=== PATIENT | female | born 1980 | race Caucasian/White ===

== ENCOUNTER 2017-01-09 23:20 | Inpatient (IN) | payer OTHER ==
[~2017-01-09] VITALS: Ht 165.1 cm; Wt 80.8 kg
[~2017-01-09 23:20] MED LIST: ATARAX25 MG PO; CIPRO250 MG PO; FLEXERIL10 MG PO; GABAPENTIN100 MG PO; HYDROCODONE BIT1 T11 PO; MOTRIN800 MG PO; MYCOLOG CREAM 115 GM PO; MYCOLOG CREAM 115 GM T; NKHM; PAXIL10 MG PO; PREDNICOT20 MG PO; PRILOSEC10 MG PO; PRILOSEC20 MG PO; TYLENOL W/CODEI1 TA2 PO; VICODIN 5/500 505 MG PO; VICODIN 500 MG-1 TAB PO; Vicodin 5/500 505 MG PO; ZOFRAN ODT4 MG SL
[2017-01-09 23:25] VITALS: BP 149/75
[2017-01-09] MEDS ORDERED: TIZANIDINE HCL4 MG PO (23:28)
[2017-01-09] MEDS ORDERED: LATU40TA PO (23:29)
[2017-01-09] MEDS ORDERED: REMERON15 M2 PO (23:29)
[2017-01-09 23:49] LABS: HEMATOCRIT 40.2 % (37.0-47.0); HEMOGLOBIN 13.8 g/dl (12.0-16.0); MEAN CORPUSCULAR HGB 31.6 pg (27.0-31.0); MEAN CORPUSCULAR HGB CONC 34.3 g/dl (33.0-37.0); MEAN PLATELET VOLUME 10.5 fl (9.6-12.3); PLATELET COUNT AUTOMATED 329 10*3/uL (130-400); RED BLOOD COUNT 4.37 10*6/uL (4.10-5.10); RED CELL DISTRI WIDTH 12.7 % (0-14.5); WHITE BLOOD COUNT 33.3 10*3/uL (4.8-10.8)
[2017-01-10] LABS: BUN 12 mg/dl (7-24); CARBON DIOXIDE 27 mmol/L (21-32); CHLORIDE 104 mmol/L (98-107); EST GLOM FILT AFRICAN AMERICAN > 60 ml/min; GLUCOSE 108 mg/dL (65-99); POTASSIUM 3.5 mmol/L (3.5-5.1); SODIUM 138 mmol/L (136-145)
[2017-01-10 00:04] LABS: CPK 98 U/L (26-192)
[2017-01-10 00:10] VITALS: BP 124/69
[2017-01-10 00:11] LABS: EOSINOPHIL # 0.7 10*3/uL (0-0.4); EOSINOPHILS 2 % (1-4); LYMPHOCYTE # 2.3 10*3/uL (1.3-4.4); NEUTROPHIL # 26.3 10*3/uL (2.3-7.9); NEUTROPHILS 79 % (47-73); PLATELET SUFFICIENCY NORMAL (NORMAL); TOTAL CELLS COUNTED 100 #CELLS
[2017-01-10 00:12] LABS: POLYCHROMASIA SLIGHT
[2017-01-10 00:29] LABS: BILIRUBIN 1+ (NEGATIVE); BLOOD 1+ (NEGATIVE); CLARITY SL CLOUDY (CLEAR); COLOR YELLOW (YELLOW); GLUCOSE NEGATIVE (NEGATIVE); KETONE NEGATIVE (NEGATIVE); LEUKO ESTERASE NEGATIVE (NEGATIVE); NITRITE NEGATIVE (NEGATIVE); PH 5.5 (5.0-9.0); PROTEIN TRACE (NEGATIVE); SPECIFIC GRAVITY 1.025 (1.005-1.030)
[2017-01-10 00:38] LABS: BACTERIA 2+; CALCIUM OXALATE CRYSTALS 2+; URINE REFLEX COMMENT YES (NO)
[2017-01-10 02:30] VITALS: BP 115/70
[2017-01-10 08:00] VITALS: BP 101/56
[2017-01-10 08:50] LABS: HEMOGLOBIN A1c 5.2 % (4.8-5.6)
[2017-01-10 09:04] LABS: ALBUMIN 2.8 gm/dl (3.1-4.5); ALKALINE PHOSPHATASE 48 U/L (45-117); BILIRUBIN, TOTAL 0.5 mg/dl (0.2-1.0); BUN 8 mg/dl (7-24); CARBON DIOXIDE 24 mmol/L (21-32); CHLORIDE 113 mmol/L (98-107); CHOLESTEROL 165 mg/dL (<200); EST GLOM FILT AFRICAN AMERICAN > 60 ml/min; FREE T4 0.99 ng/dl (0.76-1.46); GLUCOSE 91 mg/dL (65-99); HDL CHOLESTEROL 40 mg/dl (40-60); LDL CHOLESTEROL 112 mg/dL (9-159); POTASSIUM 3.7 mmol/L (3.5-5.1); SGOT/AST 12 IU/L (3-35); SGPT/ALT 18 U/L (12-78); SODIUM 143 mmol/L (136-145); TOTAL PROTEIN 5.8 gm/dL (6.4-8.2); TRIGLYCERIDES 67 mg/dl (<150); VLDL CHOLESTEROL 13 mg/dL (6-40)
[2017-01-10 09:08] LABS: BASO # 0.1 10*3/uL (0.0-0.1); BASO % 0.6 % (0.0-1.0); EOS # 0.5 10*3/uL (0.0-0.4); EOS % 3.2 % (1.0-4.0); HEMATOCRIT 35.5 % (37.0-47.0); HEMOGLOBIN 11.8 g/dl (12.0-16.0); IG # 0.1 10*3/uL (0.0-0.1); LYMPH # 3.7 10*3/uL (1.3-4.4); MEAN CELL VOLUME 92.9 fl (81.0-99.0); MEAN CORPUSCULAR HGB 30.9 pg (27.0-31.0); MEAN CORPUSCULAR HGB CONC 33.2 g/dl (33.0-37.0); MEAN PLATELET VOLUME 10.9 fl (9.6-12.3); MONO # 1.1 10*3/uL (0.1-1.0); MONO % 6.7 % (3.0-9.0); NEUT # 10.7 10*3/uL (2.3-7.9); NEUT % 66.2 % (47.0-73.0); PLATELET COUNT AUTOMATED 274 10*3/uL (130-400); RED BLOOD COUNT 3.82 10*6/uL (4.10-5.10); RED CELL DISTRI WIDTH 12.9 % (0-14.5); WHITE BLOOD COUNT 16.1 10*3/uL (4.8-10.8)
[2017-01-10 09:09] LABS: THYROID STIM HORMONE (HS) 3.26 uIU/ml (0.358-4.75)
[2017-01-10 09:14] LABS: PROTHROMBIN TIME 10.6 SECONDS (9.0-12.4)
[2017-01-10 09:25] LABS: FOLIC ACID 15.96 ng/mL (>5.38)
[2017-01-10 12:00] VITALS: BP 110/68
[2017-01-10] MEDS ORDERED: MACROBID100 M1 PO (12:35)
== END 2017-01-10 13:10 | disposition home or self-care (01) | DRG 871 ==
LOC: ED 23:20 → 5E 01-10 01:56 → EDHOLD 01-10 01:56 → 5E 01-10 02:17
PROVIDERS: Emergency Medicine; Internal Medicine Hospice and Palliative Medicine
DX: A41.9 Sepsis, unspecified organism (principal); N17.0 Acute kidney failure with tubular necrosis; N39.0 Urinary tract infection, site not specified; F07.81 Postconcussional syndrome; F31.9 Bipolar disorder, unspecified; E86.0 Dehydration; F41.1 Generalized anxiety disorder; K21.9 Gastro-esophageal reflux disease without esophagitis; R65.20 Severe sepsis without septic shock; R73.9 Hyperglycemia, unspecified; R91.1 Solitary pulmonary nodule; F17.210 Nicotine dependence, cigarettes, uncomplicated; Z79.899 Other long term (current) drug therapy; Z98.51 Tubal ligation status; Z72.89 Other problems related to lifestyle; Z80.8 Family history of malignant neoplasm of other organs or systems; Z71.6 Tobacco abuse counseling

== ENCOUNTER → 2017-02-02 | Outpatient (CLI) | payer OTHER ==
[~2017-02-02] MED LIST changes: +LATU40TA PO; +MACROBID100 M1 PO; +REMERON15 M2 PO; +TIZANIDINE HCL4 MG PO
== END | disposition home or self-care (01) ==
LOC: CT 13:47
DX: R91.1 Solitary pulmonary nodule (principal)

== ENCOUNTER → 2017-02-16 | Outpatient (CLI) | payer OTHER ==
[2017-02-17 08:11] LABS: RHEUMATOID ARTHRITIS FACTOR <10.0 IU/mL (0.0-13.9)
[2017-02-17 10:09] LABS: IMMUNOGLOBULIN IgE 002170 34 IU/mL (0-100)
[2017-02-17 12:06] LABS: ANTISCLERODERMA-70 AB 018705 <0.2 AI (0.0-0.9)
[2017-02-17 16:09] LABS: ANGIOTENSIN-CONVERTING ENZYME 57 U/L (14-82); ATYPICAL PANCA <1:20 titer (Neg:<1:20); CYTOPLASMIC (C-ANCA) <1:20 titer (Neg:<1:20); PERINUCLEAR (P-ANCA) <1:20 titer (Neg:<1:20)
[2017-02-18 00:04] LABS: IGG SUBCLASS 1 552 mg/dL (248-810); IGG SUBCLASS 2 380 mg/dL (130-555); IGG SUBCLASS 3 44 mg/dL (15-102); IGG SUBCLASS 4 27 mg/dL (2-96)
== END | disposition home or self-care (01) ==
LOC: LAB 15:12
PROVIDERS: Internal Medicine Critical Care Medicine
DX: R91.1 Solitary pulmonary nodule (principal)

== ENCOUNTER → 2017-08-17 | Outpatient (CLI) | payer OTHER | END | disposition home or self-care (01) | LOC: CT 09:35 | DX: R91.8 Other nonspecific abnormal finding of lung field (principal) ==

== ENCOUNTER → 2017-08-31 | Day surgery (SDC) | payer OTHER ==
[~2017-08-31] VITALS: Ht 165.1 cm; Wt 83.2 kg
[~2017-08-31] MED LIST changes: +VIIBRYD40 PO; +VISTARIL25 MG PO; +XANAX0.5 MG PO
--- NOTE | ~2017-08-31 | PROC NOTE ---
[place], [place] PROCEDURE NOTE NAME: JED LARES UNIT #: [id number] ROOM: DOCTOR: ANDRÉS FAUSTIN MD,YAA BIRTHDATE: [birth year] DOS: 08/31/2017 BRONCHOSCOPY NOTE PREOPERATIVE DIAGNOSIS: The patient with atelectasis in the right lower lobe with scattered area of scarring in the lung with history of pulmonary nodules. POSTOPERATIVE DIAGNOSIS: The patient with atelectasis in the right lower lobe with scattered area of scarring in the lung with history of pulmonary nodules. PROCEDURE DESCRIPTION: Informed consent obtained from the patient. She was brought to the OR and placed in supine position. Conscious sedation administered by Anesthesia Department. After achieving proper sedation in the supine position, the bronchoscopy was advanced to the airway into laryngeal area. Epiglottis and vocal cords were seen. Bronchoscope was advanced to the vocal cord and tracheal lumen. Tracheal lumen was identified and noted with scattered small amount of secretions that was suctioned out. The right upper, right middle, left upper and lingular lower lobe bronchi were all examined. All the bronchi noted patent with minimal secretions. Bronchial washing was taken from the endobronchial tree for this patient including in the right lower lobe. Procedure well tolerated by the patient without any difficulty. Postoperative finding will be discussed with the patient and the family members of the patient later on. YAA BOWEN MD CM:PROCNOTE:PROCEDURE NOTE [id number] YAA FAUSTIN MD
[2017-08-31 08:00] VITALS: BP 103/60
[2017-08-31 09:00] VITALS: BP 107/61
[2017-08-31 09:14] VITALS: BP 102/66
[2017-08-31 09:26] VITALS: BP 110/70
[2017-09-01 15:04] LABS: ACID FAST SPEC PROCESSING Concentration (.)
== END ==
LOC: SDC 08-28 14:45
PROVIDERS: Internal Medicine Critical Care Medicine
DX: J98.11 Atelectasis (principal); J40 Bronchitis, not specified as acute or chronic; F41.9 Anxiety disorder, unspecified; F31.9 Bipolar disorder, unspecified; Z87.891 Personal history of nicotine dependence; Z98.51 Tubal ligation status; Z79.899 Other long term (current) drug therapy; K21.9 Gastro-esophageal reflux disease without esophagitis

== ENCOUNTER → 2017-09-16 | Outpatient (CLI) | payer OTHER | END | disposition home or self-care (01) | LOC: MAMMO 09-09 09:00 | DX: N63.20 Unspecified lump in the left breast, unspecified quadrant (principal); N63.21 Unspecified lump in the left breast, upper outer quadrant ==

== ENCOUNTER 2018-04-03 19:46 | Emergency (ER) | payer OTHER ==
[~2018-04-03] VITALS: Wt 88.0 kg
[2018-04-03] MEDS ORDERED: LINZESS145 MC1 PO (19:53)
[2018-04-03] MEDS ORDERED: BUSPAR5 MG PO (19:53)
[2018-04-03] MEDS ORDERED: LATU20TA PO (19:53)
== END 2018-04-03 21:04 | disposition home or self-care (01) ==
LOC: ED 19:46
DX: S90.32XA Contusion of left foot, initial encounter (principal); F17.200 Nicotine dependence, unspecified, uncomplicated; Z79.899 Other long term (current) drug therapy; W20.8XXA Other cause of strike by thrown, projected or falling object, initial encounter; Y93.89 Activity, other specified; Y92.89 Other specified places as the place of occurrence of the external cause; Y99.8 Other external cause status

== ENCOUNTER 2018-07-05 00:07 | Emergency (ER) | payer OTHER ==
[~2018-07-05] VITALS: Ht 165.1 cm; Wt 92.1 kg
[~2018-07-05 00:07] MED LIST changes: +BUSPAR5 MG PO; +LATU20TA PO; +LINZESS145 MC1 PO
[2018-07-05] MEDS ORDERED: CYMBALTA60 MG PO (00:13)
[2018-07-05] MEDS ORDERED: REXULTI3 MG PO (00:13)
[2018-07-05 00:39] LABS: BASO % 0.3 % (0.0-1.0); EOS # 0.2 10*3/uL (0.0-0.4); EOS % 1.4 % (1.0-4.0); HEMATOCRIT 46.5 % (37.0-47.0); HEMOGLOBIN 15.3 g/dl (12.0-16.0); LYMPH # 0.9 10*3/uL (1.3-4.4); LYMPH % 5.7 % (27.0-41.0); MEAN CELL VOLUME 93.8 fl (81.0-99.0); MEAN CORPUSCULAR HGB 30.8 pg (27.0-31.0); MEAN CORPUSCULAR HGB CONC 32.9 g/dl (33.0-37.0); MEAN PLATELET VOLUME 10.3 fl (9.6-12.3); MONO # 0.9 10*3/uL (0.1-1.0); MONO % 5.7 % (3.0-9.0); NEUT # 13.7 10*3/uL (2.3-7.9); NEUT % 86.6 % (47.0-73.0); PLATELET COUNT AUTOMATED 314 10*3/uL (130-400); RED BLOOD COUNT 4.96 10*6/uL (4.10-5.10); RED CELL DISTRI WIDTH 13.1 % (0-14.5); WHITE BLOOD COUNT 15.8 10*3/uL (4.8-10.8)
[2018-07-05 00:54] LABS: BILIRUBIN NEGATIVE (NEGATIVE); BLOOD 1+ (NEGATIVE); CLARITY SL CLOUDY (CLEAR); COLOR YELLOW (YELLOW); GLUCOSE NEGATIVE (NEGATIVE); KETONE TRACE (NEGATIVE); LEUKO ESTERASE NEGATIVE (NEGATIVE); NITRITE NEGATIVE (NEGATIVE); PH 5.5 (5.0-9.0); SPECIFIC GRAVITY 1.025 (1.005-1.030); UROBILINOGEN 0.2 E.U./dl (0.2-1.0)
[2018-07-05 00:56] LABS: ALBUMIN 3.9 gm/dl (3.1-4.5); ALKALINE PHOSPHATASE 75 U/L (45-117); BUN 10 mg/dl (7-24); CHLORIDE 103 mmol/L (98-107); CREATININE 0.98 mg/dL (0.55-1.02); LIPASE 81 U/L (73-393); SGOT/AST 22 IU/L (3-35); SGPT/ALT 35 U/L (12-78); SODIUM 137 mmol/L (136-145); TOTAL PROTEIN 7.9 gm/dL (6.4-8.2)
[2018-07-05 01:13] LABS: BACTERIA 3+; EPITHELIAL CELLS 40-45
[2018-07-05] MEDS ORDERED: ZOFRAN4 MG PO (01:43)
== END 2018-07-05 02:12 | disposition home or self-care (01) ==
LOC: ED 00:07
PROVIDERS: Physician Assistant
DX: A08.4 Viral intestinal infection, unspecified (principal); K21.9 Gastro-esophageal reflux disease without esophagitis; F17.200 Nicotine dependence, unspecified, uncomplicated; Z79.899 Other long term (current) drug therapy

== ENCOUNTER 2018-07-18 18:18 | Emergency (ER) | payer OTHER ==
[~2018-07-18] VITALS: Ht 165.1 cm; Wt 92.1 kg
[~2018-07-18 18:18] MED LIST changes: +CYMBALTA60 MG PO; +REXULTI3 MG PO; +ZOFRAN4 MG PO
== END 2018-07-18 20:30 | disposition home or self-care (01) ==
LOC: ED 18:18
DX: S92.902A Unspecified fracture of left foot, initial encounter for closed fracture (principal); F17.200 Nicotine dependence, unspecified, uncomplicated; Z79.899 Other long term (current) drug therapy; W10.9XXA Fall (on) (from) unspecified stairs and steps, initial encounter; Y93.89 Activity, other specified; Y92.89 Other specified places as the place of occurrence of the external cause; Y99.8 Other external cause status

== ENCOUNTER 2018-12-25 12:11 | Emergency (ER) | payer OTHER ==
[~2018-12-25] VITALS: Ht 165.1 cm; Wt 98.0 kg
[2018-12-25] MEDS ORDERED: Motrin,Rufen800 MG PO (14:12)
[2018-12-25] MEDS ORDERED: CYCLOBENZAPRINE5 M3 PO (14:12)
== END 2018-12-25 14:24 | disposition home or self-care (01) ==
LOC: ED 12:11
DX: S39.012A Strain of muscle, fascia and tendon of lower back, initial encounter (principal); F17.200 Nicotine dependence, unspecified, uncomplicated; Z79.899 Other long term (current) drug therapy; X50.0XXA Overexertion from strenuous movement or load, initial encounter; Y93.89 Activity, other specified; Y92.89 Other specified places as the place of occurrence of the external cause; Y99.8 Other external cause status

== ENCOUNTER → 2019-02-15 | Outpatient (CLI) | payer OTHER ==
[~2019-02-15] MED LIST changes: +CYCLOBENZAPRINE5 M3 PO; +Motrin,Rufen800 MG PO
== END | disposition home or self-care (01) ==
LOC: CT 10:34
DX: R91.8 Other nonspecific abnormal finding of lung field (principal)

== ENCOUNTER 2019-09-16 05:46 | Inpatient (IN) | payer OTHER ==
[2019-09-16] VITALS (9 sets, daily range): BP systolic 100–130; BP diastolic 58–88
[~2019-09-16] VITALS: Ht 165.1 cm; Wt 88.9 kg
[2019-09-16 06:50] LABS: BASO # 0.1 10*3/uL (0.0-0.1); BASO % 0.6 % (0.0-1.0); EOS # 0.5 10*3/uL (0.0-0.4); EOS % 3.7 % (1.0-4.0); HEMATOCRIT 41.5 % (37.0-47.0); HEMOGLOBIN 13.4 g/dl (12.0-16.0); LYMPH # 3.3 10*3/uL (1.3-4.4); LYMPH % 23.3 % (27.0-41.0); MEAN CELL VOLUME 94.7 fl (81.0-99.0); MEAN CORPUSCULAR HGB 30.6 pg (27.0-31.0); MEAN CORPUSCULAR HGB CONC 32.3 g/dl (33.0-37.0); MEAN PLATELET VOLUME 11.1 fl (9.6-12.3); MONO # 1.2 10*3/uL (0.1-1.0); MONO % 8.6 % (3.0-9.0); NEUT # 8.8 10*3/uL (2.3-7.9); NEUT % 63.4 % (47.0-73.0); PLATELET COUNT AUTOMATED 278 10*3/uL (130-400); RED BLOOD COUNT 4.38 10*6/uL (4.10-5.10); RED CELL DISTRI WIDTH 13.1 % (0-14.5); WHITE BLOOD COUNT 13.9 10*3/uL (4.8-10.8)
[2019-09-16 07:02] LABS: ACT PARTIAL THROMBO TIME 28.8 SECONDS (20.0-32.1); INTERNATIONAL NORM RATIO 0.9 (2.0-3.5)
[2019-09-16 07:06] LABS: ALBUMIN 3.3 gm/dl (3.1-4.5); ALKALINE PHOSPHATASE 77 U/L (45-117); BUN 14 mg/dl (7-24); CHLORIDE 106 mmol/L (98-107); CREATININE 1.03 mg/dL (0.55-1.02); POTASSIUM 3.6 mmol/L (3.5-5.1); SGOT/AST 15 IU/L (3-35); SGPT/ALT 19 U/L (12-78); SODIUM 139 mmol/L (136-145); TOTAL PROTEIN 6.8 gm/dL (6.4-8.2)
[2019-09-16 07:07] LABS: TROPONIN I < 0.015 ng/ml (<0.045)
[2019-09-16] MEDS ORDERED: LAMICTAL25 MG PO (13:39)
[2019-09-16] MEDS ORDERED: LAMICTAL100 MG PO (13:39)
[2019-09-16] MEDS ORDERED: NORCO 5-325 TA1 EACH PO (14:05)
== END 2019-09-16 15:13 | disposition home or self-care (01) | DRG 263 ==
LOC: ED 05:46 → 4E 09:32 → EDHOLD 09:32 → 4E 09:48
PROVIDERS: Emergency Medicine; ADMIT Internal Medicine
PROC: 0FT44ZZ Resection of Gallbladder, Percutaneous Endoscopic Approach (ICD-10-PCS; principal; 2019-09-16)
DX: K80.00 Calculus of gallbladder with acute cholecystitis without obstruction (principal); F17.210 Nicotine dependence, cigarettes, uncomplicated; K21.9 Gastro-esophageal reflux disease without esophagitis; F31.30 Bipolar disorder, current episode depressed, mild or moderate severity, unspecified; F41.1 Generalized anxiety disorder; Z71.6 Tobacco abuse counseling; K58.9 Irritable bowel syndrome, unspecified; Z98.51 Tubal ligation status; Z80.8 Family history of malignant neoplasm of other organs or systems; Z79.899 Other long term (current) drug therapy; Z82.49 Family history of ischemic heart disease and other diseases of the circulatory system

== ENCOUNTER → 2019-12-23 | Outpatient (CLI) | payer OTHER ==
[~2019-12-23] MED LIST changes: +LAMICTAL100 MG PO; +LAMICTAL25 MG PO; +NORCO 5-325 TA1 EACH PO
== END | disposition home or self-care (01) ==
LOC: US 13:38
DX: N93.9 Abnormal uterine and vaginal bleeding, unspecified (principal)

== ENCOUNTER → 2021-11-27 | Outpatient (CLI) | payer OTHER ==
[2021-11-27 11:34] LABS: BASO # 0.1 10*3/uL (0.0-0.1); BASO % 0.6 % (0.0-1.0); EOS # 0.3 10*3/uL (0.0-0.4); EOS % 1.9 % (1.0-4.0); HEMATOCRIT 43.7 % (37.0-47.0); LYMPH # 2.2 10*3/uL (1.3-4.4); LYMPH % 15.8 % (27.0-41.0); MEAN CELL VOLUME 95.4 fl (81.0-99.0); MEAN CORPUSCULAR HGB CONC 32.5 g/dl (33.0-37.0); MEAN PLATELET VOLUME 11.2 fl (9.6-12.3); NEUT # 10.3 10*3/uL (2.3-7.9); NEUT % 74.4 % (47.0-73.0); PLATELET COUNT AUTOMATED 312 10*3/uL (130-400); RED BLOOD COUNT 4.58 10*6/uL (4.10-5.10); RED CELL DISTRI WIDTH 13.2 % (0-14.5); RETICULOCYTE % 1.48 % (0.50-2.50); WHITE BLOOD COUNT 13.8 10*3/uL (4.8-10.8)
[2021-11-27 11:41] LABS: BILIRUBIN Negative (Negative); BLOOD Negative (Negative); CLARITY Clear (Clear); COLOR Yellow (Yellow); GLUCOSE Negative (Negative); KETONE Negative (Negative); LEUKO ESTERASE Negative (Negative); NITRITE Negative (Negative); SPECIFIC GRAVITY <= 1.005 (1.001-1.030)
[2021-11-27 11:54] LABS: ALKALINE PHOSPHATASE 69 U/L (45-117); BUN 5 mg/dl (7-24); CHLORIDE 113 mmol/L (98-107); CHOLESTEROL 224 mg/dL (<200); CREATININE 0.98 mg/dL (0.55-1.02); GAMMA GLUTAMYL TRANSPEPTIDASE 18 U/L (5-55); IRON 113 ug/dL (50-170); LDL CHOLESTEROL 143 mg/dL (9-159); POTASSIUM 3.4 mmol/L (3.5-5.1); SGOT/AST 11 IU/L (3-35); SGPT/ALT 19 U/L (12-78); SODIUM 142 mmol/L (136-145); TOTAL PROTEIN 7.7 gm/dL (6.4-8.2); TRIGLYCERIDES 95 mg/dl (<150); URIC ACID 3.7 mg/dL (2.6-6.0)
[2021-11-27 12:47] LABS: FERRITIN 91.7 ng/mL (10.0-291.0)
[2021-11-27 13:23] LABS: WBC 0-2 wbc/hpf (0-5)
[2021-11-27 13:28] LABS: VITAMIN D, 25-HYDROXY 61.3 ng/mL (30-100)
[2021-11-27 13:29] LABS: B-hCG (QUALITATIVE) NEGATIVE (NEGATIVE); THYROXINE (T4) TOTAL 8.8 ug/dl (4.8-13.9); TOTAL IRON BINDING CAPACITY 301 ug/dl (250-450)
[2021-11-27 13:35] LABS: BETA-HCG, QUANT < 1.0 mIU/mL (1-3)
[2021-11-27 15:56] LABS: T3 UPTAKE 33 % (31-39)
[2021-11-28 04:07] LABS: FOLLICLE STIMULATING HORMONE 4.4 mIU/mL (.); SEX HORMONE BINDING GLOBULIN 71.4 nmol/L (24.6-122.0)
[2021-11-28 05:08] LABS: RHEUMATOID FACTOR <10.0 IU/mL (<14.0)
[2021-11-28 08:07] LABS: LUTEINIZING HORMONE 5.2 mIU/mL (.); PROGESTERONE 13.9 ng/mL (.); PROLACTIN 9.3 ng/mL (4.8-23.3)
[2021-11-28 14:09] LABS: ANTI-DSDNA ANTIBODIES <1 IU/mL (0-9)
[2021-11-29 07:06] LABS: HUMAN GROWTH HORMONE 0.7 ng/mL (0.0-10.0)
[2021-11-30 04:06] LABS: TESTOSTERONE FREE, (DIRECT) 1.1 pg/mL (0.0-4.2)
[2021-12-03 18:06] LABS: DEHYDROEPIANDROSTERONE 283 ng/dL (31-701)
== END | disposition home or self-care (01) ==
LOC: LAB 10:24
PROVIDERS: ATTEND Family Medicine
DX: E78.5 Hyperlipidemia, unspecified (principal); R79.89 Other specified abnormal findings of blood chemistry; R53.83 Other fatigue; E55.9 Vitamin D deficiency, unspecified

== ENCOUNTER → 2021-12-12 | Outpatient (CLI) | payer OTHER | END | disposition home or self-care (01) | LOC: US 09:31 | PROVIDERS: ATTEND Family Medicine | DX: R10.2 Pelvic and perineal pain (principal) ==

== ENCOUNTER → 2022-07-08 | Outpatient (CLI) | payer OTHER ==
[2022-07-08 15:34] LABS: BILIRUBIN Negative (Negative); BLOOD Negative (Negative); CLARITY Clear (Clear); COLOR Yellow (Yellow); GLUCOSE Negative (Negative); KETONE Negative (Negative); LEUKO ESTERASE Trace (Negative); NITRITE Negative (Negative); PH 5.5 (4.5-8.0); UROBILINOGEN 0.2 E.U./dl (0.0-1.0)
[2022-07-08 15:36] LABS: BASO # 0.1 10*3/uL (0.0-0.1); BASO % 0.7 % (0.0-1.0); EOS # 0.2 10*3/uL (0.0-0.4); EOS % 2.3 % (1.0-4.0); HEMATOCRIT 40.1 % (37.0-47.0); LYMPH # 2.6 10*3/uL (1.3-4.4); MEAN CELL VOLUME 93.9 fl (81.0-99.0); MEAN CORPUSCULAR HGB 30.4 pg (27.0-31.0); MEAN CORPUSCULAR HGB CONC 32.4 g/dl (33.0-37.0); MONO # 0.8 10*3/uL (0.1-1.0); MONO % 7.7 % (3.0-9.0); NEUT # 6.6 10*3/uL (2.3-7.9); NEUT % 63.9 % (47.0-73.0); PLATELET COUNT AUTOMATED 252 10*3/uL (130-400); RED BLOOD COUNT 4.27 10*6/uL (4.10-5.10); RED CELL DISTRI WIDTH 12.6 % (0-14.5); RETICULOCYTE % 1.22 % (0.50-2.50); WHITE BLOOD COUNT 10.4 10*3/uL (4.8-10.8)
[2022-07-08 15:53] LABS: BACTERIA 1+
[2022-07-08 16:03] LABS: ALKALINE PHOSPHATASE 62 U/L (46-116); BUN 7 mg/dl (9-23); CHLORIDE 107 mmol/L (98-107); CHOLESTEROL 196 mg/dL (<200); GAMMA GLUTAMYL TRANSPEPTIDASE 8 U/L (0-73); LDL CHOLESTEROL 122 mg/dL (9-159); SGPT/ALT 12 U/L (10-49); THYROID STIM HORMONE (HS) 1.273 uIU/ml (0.550-4.780); THYROXINE (T4) TOTAL 7.5 ug/dl (4.5-10.9); TOTAL PROTEIN 6.7 gm/dL (6.0-8.0); TRIGLYCERIDES 156 mg/dl (<150); URIC ACID 4.8 mg/dL (3.1-9.2)
[2022-07-08 16:41] LABS: VITAMIN D, 25-HYDROXY 25.9 ng/mL (30-100)
[2022-07-09 13:06] LABS: ANTI-DSDNA ANTIBODIES <1 IU/mL (0-9)
== END | disposition home or self-care (01) ==
LOC: LAB 15:06
PROVIDERS: ATTEND Family Medicine
DX: E78.5 Hyperlipidemia, unspecified (principal); E55.9 Vitamin D deficiency, unspecified; R79.89 Other specified abnormal findings of blood chemistry; R53.83 Other fatigue; R74.8 Abnormal levels of other serum enzymes; R06.02 Shortness of breath

== ENCOUNTER → 2022-08-13 | Outpatient (CLI) | payer OTHER ==
[~2022-08-13] MED LIST changes: +ATENOLOL25 MG PO; +NATURE'S BLEND F1 MG PO; +PROTONIX TR40 M1 PO; +TOPAMAX100 M1 PO; +TRAZODONE50 MG PO
== END | disposition home or self-care (01) ==
LOC: CARD 01:44
PROVIDERS: ATTEND Internal Medicine Cardiovascular Disease
DX: I49.3 Ventricular premature depolarization (principal); N93.8 Other specified abnormal uterine and vaginal bleeding; R07.89 Other chest pain; R00.2 Palpitations

== ENCOUNTER → 2024-07-01 | Outpatient (CLI) | payer OTHER ==
[2024-07-01 10:39] LABS: BASO # 0.1 10*3/uL (0.0-0.1); BASO % 0.9 % (0.0-1.0); EOS # 0.2 10*3/uL (0.0-0.4); EOS % 1.3 % (1.0-4.0); HEMATOCRIT 42.2 % (37.0-47.0); MEAN CELL VOLUME 93.6 fl (81.0-99.0); MEAN CORPUSCULAR HGB 31.3 pg (27.0-31.0); MEAN CORPUSCULAR HGB CONC 33.4 g/dl (33.0-37.0); MEAN PLATELET VOLUME 10.4 fl (9.6-12.3); MONO # 1.1 10*3/uL (0.1-1.0); MONO % 8.4 % (3.0-9.0); NEUT # 8.7 10*3/uL (2.3-7.9); NEUT % 68.6 % (47.0-73.0); PLATELET COUNT AUTOMATED 299 10*3/uL (130-400); RED BLOOD COUNT 4.51 10*6/uL (4.10-5.10); RED CELL DISTRI WIDTH 12.9 % (0-14.5); WHITE BLOOD COUNT 12.7 10*3/uL (4.8-10.8)
[2024-07-01 11:01] LABS: BUN 10 mg/dl (9-23); CHLORIDE 108 mmol/L (98-107); CHOLESTEROL 203 mg/dL (<200); LDL CHOLESTEROL 128 mg/dL (9-159); POTASSIUM 3.5 mmol/L (3.4-5.1); SGPT/ALT 13 U/L (5-49); TRIGLYCERIDES 118 mg/dl (<150)
== END | disposition home or self-care (01) ==
LOC: LAB 10:01
PROVIDERS: ATTEND Nurse Practitioner Family
DX: R07.89 Other chest pain (principal); R00.2 Palpitations; Z72.0 Tobacco use; Z82.49 Family history of ischemic heart disease and other diseases of the circulatory system

== ENCOUNTER → 2024-08-10 | Outpatient (CLI) | payer OTHER | END | disposition home or self-care (01) | LOC: CARD 01:23 | PROVIDERS: ATTEND Internal Medicine Cardiovascular Disease | DX: R07.89 Other chest pain (principal); R94.31 Abnormal electrocardiogram [ECG] [EKG] ==

== ENCOUNTER 2025-01-11 22:42 | Emergency (ER) | payer OTHER ==
[~2025-01-11] VITALS: Ht 165.1 cm; Wt 67.6 kg
[2025-01-11] MEDS ORDERED: BUSPAR15 MG PO (22:56)
[2025-01-12] MEDS ORDERED: STOOL SOFTENER100 MG PO (01:25)
[2025-01-12] MEDS ORDERED: HYDROCODONE-AC1 EAC1 PO ×2 (01:25→10:39)
[2025-01-12] MEDS ORDERED: Acetaminophen/Hydrocodone 5 MG/325 MG TABLET PO ONE (01:30)
== END 2025-01-12 01:35 | disposition home or self-care (01) ==
LOC: ED 22:42
DX: S32.2XXA Fracture of coccyx, initial encounter for closed fracture (principal); Z79.899 Other long term (current) drug therapy; Z98.890 Other specified postprocedural states; Z90.49 Acquired absence of other specified parts of digestive tract; Z87.891 Personal history of nicotine dependence; W01.198A Fall on same level from slipping, tripping and stumbling with subsequent striking against other object, initial encounter; Y92.838 Other recreation area as the place of occurrence of the external cause; Y93.89 Activity, other specified; Y99.8 Other external cause status